=== PATIENT | male | born 1960 | race Hispanic/Latino ===

== ENCOUNTER 2018-11-03 10:51 | Observation (INO) | payer MEDICARE ==
[2018-11-03] VITALS (9 sets, daily range): BP systolic 129–148; BP diastolic 78–91
[~2018-11-03] VITALS: Ht 170.2 cm; Wt 99.3 kg
[2018-11-03] MEDS ORDERED: ASPIRIN 325 MG TABLET ONE (11:46)
[2018-11-03 11:48] LABS: BASOPHILS % (AUTO) 0.9 % (0.0-5.0); EOSINOPHILS % (AUTO) 3.1 % (0.0-8.0); HEMATOCRIT 43.4 % (42-54); LYMPHOCYTES % (AUTO) 19.6 % (21.0-51.0); MEAN CORPUSCULAR HEMOGLOBIN 30.3 pg (27.0-33.0); MEAN CORPUSCULAR HGB CONC 33.1 g/dL (32.0-36.0); MEAN CORPUSCULAR VOLUME 91.5 fL (79-99); MONOCYTES % (AUTO) 6.9 % (3.0-13.0); NEUTROPHILS % (AUTO) 69.5 % (40.0-77.0); PLATELET COUNT (AUTO) 314 K/uL (130-400); RED BLOOD CELL COUNT(AUTO) 4.75 MIL/uL (4.50-6.20); RED CELL DISTRIBUTION WIDTH 13.5 % (11.0-15.5); WHITE BLOOD COUNT (AUTO) 8.1 K/uL (4.8-10.8)
[2018-11-03 11:50] LABS: CREATININE 0.8 mg/dL (0.5-1.5); POTASSIUM 4.1 mmol/L (3.5-5.1)
[2018-11-03 11:56] LABS: ALBUMIN 3.5 g/dL (3.5-5.0); BILIRUBIN,TOTAL 0.4 mg/dL (0.2-1.0); TOTAL PROTEIN, SERUM 8.3 g/dL (6.0-8.3)
[2018-11-03 11:58] LABS: INR 0.95 (0.85-1.15); PARTIAL THROMBOPLASTIN TIME 29.3 SEC (26.3-35.5)
[2018-11-03] MEDS ORDERED: LIDOCAINE HCL 2% 20ML ONE (14:08)
[2018-11-03] MEDS ORDERED: NITROGLYCERIN 5 MG/ML 10 ML VIAL IV ONE (14:08)
[2018-11-03] MEDS ORDERED: IOHEXOL-350 50ML VIAL IV ONE (14:08)
[2018-11-03] MEDS ORDERED: HEPARIN SODIUM 1000UNIT/ML 10ML VIAL ONE (14:08)
[2018-11-03] MEDS ORDERED: IOHEXOL 350 MG/ML 100ML INFUS..BTL IV ONE (14:08)
[2018-11-03] MEDS: SODIUM CHLORIDE 0.9% 1000ML 1,000 ML IV SCH (14:40)
[2018-11-03] MEDS ORDERED: NITROGLYCERIN 1GM/1 INCH PACKET TD SCH (14:45)
[2018-11-03] MEDS ORDERED: HYDRALAZINE HCL 20 MG/ML VIAL IV PRN (14:45)
[2018-11-03] MEDS ORDERED: ONDANSETRON HCL 4 MG/2 ML VIAL IV PRN (14:45)
[2018-11-03] MEDS ORDERED: ACETAMINOPHEN 325 MG TAB PO PRN ×2 (14:45)
[2018-11-03] MEDS ORDERED: MORPHINE SULFATE 2 MG/ML 1ML SYG IV PRN (14:45)
[2018-11-03] MEDS ORDERED: DEXTROSE 50%-WATER 50 ML DISP.SYRIN IV PRN (15:00)
[2018-11-03] MEDS ORDERED: GLUCAGON 1MG KIT 1 MG ML IM PRN (15:00)
[2018-11-03 15:11] LABS: HEMOGLOBIN A1C 6.9 % (4.0-6.0)
--- NOTE | 2018-11-03 15:30 | NUR ---
PT . CAME FROM [facility]. PT AAO X 3 REVIEW PLAN OF CARE . RT GROIN 0-SITE DRSG DRY AND CLEAN , AND SOFT TO TOUCH ,STRONG DORSALES AND TIBIALS. CMS PRESENT TO HIS . TOES. DENIES ANY PAIN. . PT WAS INSTRUCTED TO KEEP .FLAT ORD FOR 3-4 HRS . PER PROCEDURE, CARE. CALL LIGHT IN [facility].
[2018-11-03] MEDS: SODIUM CHLORIDE 0.9% 500ML 500 ML IV SCH ×2 (19:51→19:52)
[2018-11-03] MEDS ORDERED: METOPROLOL TARTRATE 25 MG TAB PO SCH (21:00)
[2018-11-04] MEDS: SODIUM CHLORIDE 0.9% 1000ML 1,000 ML IV SCH (01:27)
[2018-11-04 03:05] VITALS: BP 149/92
[2018-11-04] MEDS ORDERED: INSULIN HUMULIN R 100 UNIT/ML 3ML SQ SCH (07:30)
[2018-11-04 08:00] VITALS: BP 121/86
[2018-11-04] MEDS ORDERED: ASPIRIN 325 MG TABLET PO SCH (09:00)
--- NOTE | 2018-11-04 11:10 | NUR ---
PT D/C WITH TEACH BACK EDUCATION SATISFACTORILY IV REMOVED, CATHETER INTACT PUNCTURE SITE, CLEAN AND DRY , SOFT NO SIGNS OF HEMATOMA, INFECTION NOTED TELE REMOVED, GIVEN TO SUPERINTENDENT CEMETERY TO TAKE TO TELE
== END 2018-11-04 12:58 | disposition home or self-care (01) ==
LOC: EDH 10:51 → INTOOBSV 14:40 → EDHIP 14:40 → 4BH 15:34
PROVIDERS: ADMIT Internal Medicine; ATTEND Internal Medicine
DX: M79.18 Myalgia, other site (principal); E11.9 Type 2 diabetes mellitus without complications; E66.9 Obesity, unspecified; E78.2 Mixed hyperlipidemia; I44.7 Left bundle-branch block, unspecified; D64.9 Anemia, unspecified; Z68.34 Body mass index [BMI] 34.0-34.9, adult; Z79.4 Long term (current) use of insulin; Z82.5 Family history of asthma and other chronic lower respiratory diseases; Z84.89 Family history of other specified conditions; Z79.899 Other long term (current) drug therapy; Z79.01 Long term (current) use of anticoagulants
CPT/HCPCS: 36415; 71045; 80053; 82550; 82948 ×2; 83036; 84484; 85025; 85610; 85730; 93005 ×4; 93458; 99284; C1760; C1894; G0378 ×22; J1644; J3490 ×2; Q9965; Q9967 ×2